=== PATIENT | female | born 1980 ===

== ENCOUNTER 2023-03-08 06:09 | Day surgery (SDC) | payer BC ==
[~2023-03-08 06:09] MED LIST: Dextrose 5%-0.45% NaCl 1,000 ML IV SCH
[2023-03-08] MEDS ORDERED: Midazolam 1 MG/ML 2 ML SDV IV ONE ×7 (06:10→07:18)
[2023-03-08] MEDS ORDERED: fentaNYL 100 MCG/2 ML SDV IV ONE ×5 (06:10→07:20)
[2023-03-08] MEDS ORDERED: Midazolam 1 MG/ML 2 ML SDV ONE (06:17)
[2023-03-08] MEDS ORDERED: fentaNYL 100 MCG/2 ML SDV ONE (06:17)
== END 2023-03-08 08:55 | disposition home or self-care (01) ==
LOC: DL.ENDO 06:09
PROVIDERS: ATTEND Internal Medicine Gastroenterology
DX: Z12.11 Encounter for screening for malignant neoplasm of colon (principal); D12.2 Benign neoplasm of ascending colon; K63.5 Polyp of colon; K57.30 Diverticulosis of large intestine without perforation or abscess without bleeding; E66.09 Other obesity due to excess calories; E78.5 Hyperlipidemia, unspecified; Z88.0 Allergy status to penicillin; Z98.890 Other specified postprocedural states; Z68.35 Body mass index [BMI] 35.0-35.9, adult
CPT/HCPCS: 45385; 81025; J2250; J3010; J7042